=== PATIENT | female | born 1945 | race Caucasian/White ===

== ENCOUNTER 2024-01-16 10:47 | Inpatient (IN) ==
[2024-01-16] MEDS: IPRATROPIUM/ALBUTEROL 3 ML AMPUL.NEB NEB ONE (11:19)
[2024-01-16 11:47] LABS: Basophils # (Auto) 0.03 K/mcL (0.00-0.30); Basophils % (Auto) 0.5 % (0.0-2.0); Eosinophils # (Auto) 0.06 K/mcL (0.00-0.70); Hematocrit 30.8 % (34.1-44.9); Hemoglobin 9.7 g/dL (11.2-15.7); Lymphocytes # (Auto) 0.94 K/mcL (1.50-4.80); Lymphocytes % (Auto) 15.5 % (15.5-49.0); Mean Cell Volume 92.5 fL (80.0-100.0); Mean Corpuscular HGB Conc 31.5 g/dL (31.0-36.0); Mean Platelet Volume 11.3 fL (8.8-12.5); Monocytes # (Auto) 0.65 K/mcL (0.10-0.90); Monocytes % (Auto) 10.7 % (1.0-12.0); Platelet Count 185 K/mcL (140-440); RBC 3.33 M/mcL (3.59-5.38); Red Cell Distribution Width 14.7 % (11.5-14.5); WBC 6.1 K/mcL (4.5-11.0)
[2024-01-16 12:10] LABS: ALT/SGPT 20 U/L (<40); AST/SGOT 61 U/L (<32); Albumin 3.6 gm/dL (3.2-5.2); Albumin/Globulin Ratio 1.3 (1.0-2.3); Alkaline Phosphatase 46 U/L (39-117); Bilirubin,Total 0.3 mg/dL (0.1-1.0); Blood Urea Nitrogen 26 mg/dL (8-23); Calcium 9.1 mg/dL (8.6-10.4); Carbon Dioxide 28 mmol/L (22-30); Chloride 98 mmol/L (96-108); Globulin 2.8 gm/dL (2.2-3.7); Glomerular Filtration Rate 43; Glucose 150 mg/dL (70-105); Potassium 3.7 mmol/L (3.3-5.1); Sodium 136 mmol/L (133-145)
[2024-01-16] MEDS: FUROSEMIDE 100 MG/10 ML VIAL IV ONE (12:46)
[2024-01-16 13:21] LABS: Appearance,Urine Clear (Clear); Bacteria,Urine Mod /hpf (0); Bilirubin,Urine Negative (Negative); Color,Urine Yellow; Culture Indicated,Urine Yes; Glucose,Urine (UA) Negative (Negative); Ketones,Urine Negative (Negative); Leukocyte Esterase,Urine Negative /uL (Negative); Nitrate,Urine Negative (Negative); PH,Urine 5.5 (5.0-9.0); Protein,Urine Trace mg/dL (Negative); Urine Blood Negative ery/mcL (Negative); Urine RBC 0 /hpf (0-3); Urine Squamous Epithelial Cell 1 /hpf (0-4); Urine WBC 0 /hpf (0-4); Urobilinogen,Urine Normal
[2024-01-16] MEDS: DEXAMETHASONE 10 MG/ML VIAL IV ONE (16:01)
[2024-01-16] MEDS ORDERED: BISACODYL 10 MG SUPP.RECT PR PRN (17:28)
[2024-01-16] MEDS ORDERED: SENNOSIDES 1 TABLET PO PRN (17:28)
[2024-01-16] MEDS ORDERED: POLYETHYLENE GLYCOL 3350 17 GM PACKET PO PRN (17:28)
[2024-01-16] MEDS ORDERED: ONDANSETRON 4 MG/2 ML VIAL IV PRN (17:28)
[2024-01-16] MEDS ORDERED: DEXTROSE 31 GM ORAL.SUSP PO PRN (17:28)
[2024-01-16] MEDS ORDERED: DEXTROSE 50% 50 ML VIAL IV PRN (17:28)
[2024-01-16] MEDS: REMDESIVIR 200 MG in 0.9 % SODIUM CHLORIDE 250 ML IV ONE (17:49)
[2024-01-16] MEDS: INSULIN LISPRO 1 UNIT/0.01 ML UNIT SQ SCH (17:49)
[2024-01-16] MEDS: traMADol 50 MG TABLET PO PRN (19:16)
[2024-01-16] MEDS: IPRATROPIUM/ALBUTEROL 3 ML AMPUL.NEB NEB SCH (19:41)
[2024-01-16] MEDS: DOXAZOSIN 4 MG TABLET PO SCH (20:50)
[2024-01-16] MEDS: GABAPENTIN 300 MG CAPSULE PO SCH (20:50)
[2024-01-16] MEDS: CARVEDILOL 3.125 MG TABLET PO SCH (20:50)
[2024-01-16] MEDS: APIXABAN 5 MG TABLET PO SCH (20:51)
[2024-01-16] MEDS: MONTELUKAST 10 MG TABLET PO SCH (20:51)
[2024-01-16] MEDS: 0.9 % SODIUM CHLORIDE 10 ML SYRINGE IV SCH (20:51)
[2024-01-17] MEDS: ACETAMINOPHEN 325 MG TABLET PO PRN (01:01)
[2024-01-17 07:10] LABS: Basophils # (Auto) 0.03 K/mcL (0.00-0.30); Basophils % (Auto) 0.9 % (0.0-2.0); Eosinophils # (Auto) 0 K/mcL (0.00-0.70); Eosinophils % (Auto) 0 % (0.0-7.0); Hematocrit 31.9 % (34.1-44.9); Hemoglobin 10.4 g/dL (11.2-15.7); Lymphocytes # (Auto) 0.58 K/mcL (1.50-4.80); Mean Cell Volume 89.9 fL (80.0-100.0); Mean Corpuscular HGB Conc 32.6 g/dL (31.0-36.0); Mean Platelet Volume 11.3 fL (8.8-12.5); Monocytes # (Auto) 0.24 K/mcL (0.10-0.90); Monocytes % (Auto) 7.5 % (1.0-12.0); Neutrophils % (Auto) 73.3 % (38.0-78.0); Platelet Count 207 K/mcL (140-440); RBC 3.55 M/mcL (3.59-5.38); Red Cell Distribution Width 14.4 % (11.5-14.5); WBC 3.2 K/mcL (4.5-11.0)
[2024-01-17 07:28] LABS: ALT/SGPT 14 U/L (<40); AST/SGOT 42 U/L (<32); Albumin 3.7 gm/dL (3.2-5.2); Albumin/Globulin Ratio 1.2 (1.0-2.3); Alkaline Phosphatase 46 U/L (39-117); Bilirubin,Direct < 0.2 mg/dL (0-0.3); Bilirubin,Total 0.3 mg/dL (0.1-1.0); Blood Urea Nitrogen 27 mg/dL (8-23); Calcium 9.2 mg/dL (8.6-10.4); Carbon Dioxide 30 mmol/L (22-30); Chloride 98 mmol/L (96-108); Glomerular Filtration Rate 48; Glucose 117 mg/dL (70-105); Lactate Dehydrogenase 170 U/L (135-225); Phosphorous 4.1 mg/dL (2.5-4.5); Potassium 3.8 mmol/L (3.3-5.1); Sodium 140 mmol/L (133-145); Triglycerides 70 mg/dL (<150); Uric Acid 6.1 mg/dL (2.5-8.0)
[2024-01-17] MEDS: ATORVASTATIN 20 MG TABLET PO SCH (08:20)
[2024-01-17] MEDS: DULoxetine 30 MG CAPSULE PO SCH (08:20)
[2024-01-17] MEDS: ALLOPURINOL 100 MG TABLET PO SCH (08:25)
[2024-01-17] MEDS: DEXAMETHASONE 10 MG/ML VIAL IV SCH (08:25)
[2024-01-17] MEDS: FENOFIBRATE 43 MG CAPSULE PO SCH (08:26)
[2024-01-17] MEDS: REMDESIVIR 100 MG in 0.9 % SODIUM CHLORIDE 250 ML IV SCH (10:28)
[2024-01-17] MEDS: FUROSEMIDE 40 MG/4 ML VIAL IV ONE (16:19)
[2024-01-18 06:44] LABS: Basophils # (Auto) 0.01 K/mcL (0.00-0.30); Basophils % (Auto) 0.2 % (0.0-2.0); Eosinophils # (Auto) 0 K/mcL (0.00-0.70); Eosinophils % (Auto) 0 % (0.0-7.0); Hematocrit 32.6 % (34.1-44.9); Hemoglobin 10.4 g/dL (11.2-15.7); Lymphocytes # (Auto) 1.13 K/mcL (1.50-4.80); Lymphocytes % (Auto) 23.6 % (15.5-49.0); Mean Cell Volume 90.6 fL (80.0-100.0); Mean Corpuscular HGB Conc 31.9 g/dL (31.0-36.0); Mean Platelet Volume 11.2 fL (8.8-12.5); Monocytes % (Auto) 10.4 % (1.0-12.0); Neutrophils % (Auto) 65.8 % (38.0-78.0); Platelet Count 235 K/mcL (140-440); Red Cell Distribution Width 14.4 % (11.5-14.5); WBC 4.8 K/mcL (4.5-11.0)
[2024-01-18 07:02] LABS: ALT/SGPT 13 U/L (<40); AST/SGOT 29 U/L (<32); Albumin 3.5 gm/dL (3.2-5.2); Albumin/Globulin Ratio 1.2 (1.0-2.3); Alkaline Phosphatase 42 U/L (39-117); Bilirubin,Direct < 0.2 mg/dL (0-0.3); Bilirubin,Total 0.3 mg/dL (0.1-1.0); Blood Urea Nitrogen 42 mg/dL (8-23); Calcium 8.9 mg/dL (8.6-10.4); Carbon Dioxide 31 mmol/L (22-30); Chloride 97 mmol/L (96-108); Globulin 2.9 gm/dL (2.2-3.7); Glomerular Filtration Rate 43; Glucose 86 mg/dL (70-105); Lactate Dehydrogenase 169 U/L (135-225); Phosphorous 3.5 mg/dL (2.5-4.5); Potassium 3.8 mmol/L (3.3-5.1); Sodium 137 mmol/L (133-145); Triglycerides 53 mg/dL (<150); Uric Acid 6.6 mg/dL (2.5-8.0)
[2024-01-18] MEDS: IPRATROPIUM/ALBUTEROL 3 ML AMPUL.NEB NEB ONE (11:56)
[2024-01-18] MEDS: IPRATROPIUM/ALBUTEROL 3 ML AMPUL.NEB NEB SCH (12:00)
[2024-01-19 06:53] LABS: Basophils # (Auto) 0.01 K/mcL (0.00-0.30); Basophils % (Auto) 0.2 % (0.0-2.0); Eosinophils # (Auto) 0.01 K/mcL (0.00-0.70); Eosinophils % (Auto) 0.2 % (0.0-7.0); Hematocrit 34.6 % (34.1-44.9); Hemoglobin 11.3 g/dL (11.2-15.7); Lymphocytes # (Auto) 1.29 K/mcL (1.50-4.80); Mean Cell Volume 89.4 fL (80.0-100.0); Mean Corpuscular HGB Conc 32.7 g/dL (31.0-36.0); Mean Platelet Volume 11.2 fL (8.8-12.5); Monocytes # (Auto) 0.51 K/mcL (0.10-0.90); Monocytes % (Auto) 9.9 % (1.0-12.0); Neutrophils % (Auto) 64.5 % (38.0-78.0); Platelet Count 261 K/mcL (140-440); RBC 3.87 M/mcL (3.59-5.38); Red Cell Distribution Width 14.4 % (11.5-14.5); WBC 5.2 K/mcL (4.5-11.0)
[2024-01-19 06:56] LABS: ALT/SGPT 12 U/L (<40); AST/SGOT 27 U/L (<32); Albumin 3.7 gm/dL (3.2-5.2); Albumin/Globulin Ratio 1.2 (1.0-2.3); Alkaline Phosphatase 43 U/L (39-117); Bilirubin,Direct < 0.2 mg/dL (0-0.3); Bilirubin,Total 0.3 mg/dL (0.1-1.0); Blood Urea Nitrogen 39 mg/dL (8-23); Calcium 9.7 mg/dL (8.6-10.4); Carbon Dioxide 30 mmol/L (22-30); Chloride 101 mmol/L (96-108); Globulin 3.1 gm/dL (2.2-3.7); Glomerular Filtration Rate 48; Glucose 75 mg/dL (70-105); Lactate Dehydrogenase 192 U/L (135-225); Phosphorous 3.3 mg/dL (2.5-4.5); Sodium 142 mmol/L (133-145); Triglycerides 65 mg/dL (<150); Uric Acid 6.2 mg/dL (2.5-8.0)
[2024-01-19] MEDS: FLUTICASONE INH SCH (10:37)
[2024-01-19] MEDS: SALMETEROL INH SCH (10:37)
[2024-01-19] MEDS: NIFEdipine 30 MG TAB.XL.24H PO SCH (18:09)
[2024-01-20 05:50] LABS: Basophils # (Auto) 0 K/mcL (0.00-0.30); Basophils % (Auto) 0 % (0.0-2.0); Eosinophils # (Auto) 0.02 K/mcL (0.00-0.70); Eosinophils % (Auto) 0.3 % (0.0-7.0); Hematocrit 34.3 % (34.1-44.9); Hemoglobin 11.2 g/dL (11.2-15.7); Lymphocytes # (Auto) 1.48 K/mcL (1.50-4.80); Mean Cell Volume 87.9 fL (80.0-100.0); Mean Corpuscular HGB Conc 32.7 g/dL (31.0-36.0); Mean Platelet Volume 10.7 fL (8.8-12.5); Monocytes # (Auto) 0.51 K/mcL (0.10-0.90); Monocytes % (Auto) 8.6 % (1.0-12.0); Neutrophils % (Auto) 65.9 % (38.0-78.0); Platelet Count 252 K/mcL (140-440); Red Cell Distribution Width 14.3 % (11.5-14.5); WBC 5.9 K/mcL (4.5-11.0)
[2024-01-20 06:15] LABS: ALT/SGPT 8 U/L (<40); AST/SGOT 20 U/L (<32); Albumin 3.6 gm/dL (3.2-5.2); Albumin/Globulin Ratio 1.3 (1.0-2.3); Alkaline Phosphatase 41 U/L (39-117); Bilirubin,Direct < 0.2 mg/dL (0-0.3); Bilirubin,Total 0.3 mg/dL (0.1-1.0); Blood Urea Nitrogen 40 mg/dL (8-23); Calcium 9.4 mg/dL (8.6-10.4); Carbon Dioxide 29 mmol/L (22-30); Chloride 101 mmol/L (96-108); Globulin 2.7 gm/dL (2.2-3.7); Glomerular Filtration Rate 43; Glucose 86 mg/dL (70-105); Lactate Dehydrogenase 158 U/L (135-225); Phosphorous 3.3 mg/dL (2.5-4.5); Sodium 139 mmol/L (133-145); Triglycerides 73 mg/dL (<150); Uric Acid 5.6 mg/dL (2.5-8.0)
[2024-01-20] MEDS ORDERED: DEXTROSE 31 GM ORAL.SUSP PO PRN (07:59)
[2024-01-20] MEDS ORDERED: DEXTROSE 50% 50 ML VIAL IV PRN (07:59)
[2024-01-20] MEDS ORDERED: NIFEdipine 30 MG TAB.XL.24H PO SCH (09:00)
[2024-01-20] MEDS ORDERED: MAG HYDROX/AL HYDROX/SIMETH 30 ML ORAL.SUSP PO PRN (09:08)
[2024-01-20] MEDS: CYCLOBENZAPRINE 10 MG TABLET PO ONE (10:08)
[2024-01-20] MEDS: INSULIN LISPRO 1 UNIT/0.01 ML UNIT SQ SCH (11:42)
[2024-01-21 06:17] LABS: Basophils # (Auto) 0 K/mcL (0.00-0.30); Basophils % (Auto) 0 % (0.0-2.0); Eosinophils # (Auto) 0 K/mcL (0.00-0.70); Eosinophils % (Auto) 0 % (0.0-7.0); Hemoglobin 11.1 g/dL (11.2-15.7); Lymphocytes # (Auto) 0.73 K/mcL (1.50-4.80); Lymphocytes % (Auto) 13.3 % (15.5-49.0); Mean Cell Volume 88.5 fL (80.0-100.0); Mean Corpuscular HGB Conc 32.6 g/dL (31.0-36.0); Mean Platelet Volume 10.7 fL (8.8-12.5); Monocytes % (Auto) 1.8 % (1.0-12.0); Neutrophils % (Auto) 84.7 % (38.0-78.0); Platelet Count 247 K/mcL (140-440); RBC 3.84 M/mcL (3.59-5.38); Red Cell Distribution Width 14.4 % (11.5-14.5); WBC 5.5 K/mcL (4.5-11.0)
[2024-01-21 06:28] LABS: ALT/SGPT 6 U/L (<40); AST/SGOT 17 U/L (<32); Albumin 3.4 gm/dL (3.2-5.2); Albumin/Globulin Ratio 1.1 (1.0-2.3); Alkaline Phosphatase 41 U/L (39-117); Bilirubin,Direct < 0.2 mg/dL (0-0.3); Bilirubin,Total 0.3 mg/dL (0.1-1.0); Blood Urea Nitrogen 38 mg/dL (8-23); Calcium 9.4 mg/dL (8.6-10.4); Carbon Dioxide 28 mmol/L (22-30); Chloride 101 mmol/L (96-108); Glomerular Filtration Rate 43; Glucose 149 mg/dL (70-105); Lactate Dehydrogenase 162 U/L (135-225); Phosphorous 4.6 mg/dL (2.5-4.5); Potassium 4.5 mmol/L (3.3-5.1); Sodium 138 mmol/L (133-145); Triglycerides 53 mg/dL (<150); Uric Acid 5.2 mg/dL (2.5-8.0)
== END 2024-01-21 13:20 | disposition home or self-care (01) | DRG 177 ==
LOC: ED 10:47 → MEDSUR 17:21
PROVIDERS: ADMIT Student in an Organized Health Care Education/Training Program; ATTEND Student in an Organized Health Care Education/Training Program